=== PATIENT | male | born 1970 | race Caucasian/White ===

== ENCOUNTER 2022-06-25 10:32 | Emergency (ER) | payer OTHER ==
[2022-06-25 10:42] VITALS: BP 170/95; PULSE 84; RESP 18; TEMP 98.8; BMI 28.1
[2022-06-25] MEDS ORDERED: KETOROLAC TROMETHAMINE 30 MG/1 ML VIAL IVPUSH ONE (10:42)
[2022-06-25] MEDS ORDERED: KETOROLAC TROMETHAMINE 30 MG/1 ML VIAL ONE (10:49)
[2022-06-25] MEDS ORDERED: KETOROLAC TROMETHAMINE 30 MG/1 ML VIAL IM ONE (10:50)
== END 2022-06-25 11:42 | disposition home or self-care (01) ==
LOC: FER 10:32
PROC: 3E023GC Introduction of Other Therapeutic Substance into Muscle, Percutaneous Approach (ICD-10-PCS; principal; 2022-06-25)
DX: M25.561 Pain in right knee (principal)
CPT/HCPCS: 73560-TC-RT-FY; 99284-25

== ENCOUNTER 2022-09-12 04:05 | Day surgery (SDC) | payer OTHER ==
[2022-09-11 13:55] VITALS: BMI 31.6
[2022-09-12] MEDS ORDERED: BUPIVACAINE HCL/PF 0.5% (5MG/ML) 10 ML VIAL ONE (12:42)
[2022-09-12] MEDS ORDERED: LIDOCAINE 1%/EPI 1:100000 (20 ML MULTI DOSE VIAL) ONE (12:42)
[2022-09-12] MEDS ORDERED: SUCCINYLCHOLINE CHLORIDE 200 MG/10 ML SYRINGE ONE (12:56)
[2022-09-12] MEDS ORDERED: PROPOFOL 40 ML ONE (12:56)
[2022-09-12] MEDS ORDERED: MIDAZOLAM HCL 2 MG/2 ML SINGLE DOSE VIAL ONE (12:56)
[2022-09-12] MEDS ORDERED: KETOROLAC TROMETHAMINE 30 MG/1 ML VIAL ONE (12:57)
[2022-09-12] MEDS ORDERED: ONDANSETRON 4 MG/2 ML VIAL ONE (12:57)
[2022-09-12] MEDS ORDERED: ceFAZolin SODIUM 1 GM VIAL ONE (12:57)
[2022-09-12] MEDS ORDERED: DEXAMETHASONE SOD PHOSPHATE 4 MG/1 ML VIAL ONE (12:57)
[2022-09-12] MEDS ORDERED: LIDOCAINE HCL/PF 2% SDV 5ML VIAL ONE (13:01)
[2022-09-12] MEDS ORDERED: LIDOCAINE 1%/EPI 1:100000 (20 ML MULTI DOSE VIAL) INF ONE (13:19)
[2022-09-12] MEDS ORDERED: BUPIVACAINE HCL/PF 0.5% (5 MG/ML) 30 ML VIAL IJ ONE (13:20)
[2022-09-12] MEDS ORDERED: oxyCODONE HCL 5 MG TABLET PO PRN (13:58)
[2022-09-12] MEDS ORDERED: ONDANSETRON 4 MG/2 ML VIAL IVPUSH PRN (13:58)
[2022-09-12] MEDS ORDERED: LACTATED RINGERS SOLUTION 1,000 ML IV SCH (14:00)
[2022-09-12 17:42] VITALS: BP 163/88; PULSE 90; RESP 18; TEMP 97.9
== END 2022-09-12 16:30 | disposition home or self-care (01) ==
LOC: JASU-SURG 04:05
PROVIDERS: ATTEND Orthopaedic Surgery
PROC: 0SBC4ZZ Excision of Right Knee Joint, Percutaneous Endoscopic Approach (ICD-10-PCS; principal; 2022-09-12 12:30)
DX: M23.8X1 Other internal derangements of right knee (principal)
CPT/HCPCS: 94760